=== PATIENT | female | born 1980 | race Caucasian/White ===

== ENCOUNTER 2017-04-23 06:15 | Inpatient (IN) | payer OTHER ==
[~2017-04-23] VITALS: Ht 160 cm; Wt 72.7 kg
[2017-04-23] MEDS ORDERED: OXYTOCIN 30U/ 0.9% NaCL 500ML 500 ML IV ONE (06:21)
[2017-04-23] MEDS ORDERED: LACTATED RINGERS 1,000 ML IV SCH (06:21)
[2017-04-23] MEDS ORDERED: PLEASE ENTER ALLERGIES MC SCH ×2 (06:30)
[2017-04-23] MEDS ORDERED: FENTANYL PF 100 MCG/2ML IVPush PRN (06:30)
[2017-04-23] MEDS ORDERED: ONDANSETRON 2MG/ML, 2ML IVPush PRN (06:30)
[2017-04-23] MEDS ORDERED: FENTANYL PF 100 MCG/2ML IV PRN (06:30)
[2017-04-23] MEDS ORDERED: TERBUTALINE 1 MG/ML, 1ML IVPush PRN (06:30)
[2017-04-23] MEDS ORDERED: NEWBORN KIT ONE (06:36)
[2017-04-23] MEDS ORDERED: FENTANYL PF 100 MCG/2ML ONE (06:43)
[2017-04-23 06:58] LABS: HEMATOCRIT 39.5 % (34.6-47.8); HEMOGLOBIN 13.6 g/dL (11.7-16.4); WHITE BLOOD COUNT 10.2 x10^3/uL (3.4-10)
[2017-04-23] MEDS ORDERED: FENTANYL/BUPIV./NS/PF 250 ML EPIDCONT ONE ×2 (07:25→07:30)
[2017-04-23] MEDS ORDERED: BUPIVACAINE/PF-EPI 0.25% 1:200K ONE (07:25)
[2017-04-23] MEDS ORDERED: BUPIVACAINE 0.25% ONE (07:30)
[2017-04-23] MEDS ORDERED: FENTANYL/BUPIV./NS/PF 250 ML EPIDCONT SCH (07:52)
[2017-04-23] MEDS ORDERED: OXYTOCIN 30U/ 0.9% NaCL 500ML 500 ML ONE ×2 (07:57→13:50)
[2017-04-23] MEDS ORDERED: MISOPROSTOL 200 MCG TABLET ONE (07:57)
[2017-04-23] MEDS ORDERED: LIDOCAINE 1%, 20ML ONE (07:57)
[2017-04-23] MEDS ORDERED: LACTATED RINGERS 1,000 ML IVBOLUS PRN (08:00)
[2017-04-23] MEDS: PLEASE ENTER ALLERGIES MC SCH ×20 (11:00→20:00)
[2017-04-23] MEDS: LACTATED RINGERS 1,000 ML IV SCH ×3 (11:01→23:52)
[2017-04-23] MEDS ORDERED: PREN1TAB10 PO (11:02)
[2017-04-23] MEDS ORDERED: DIPH25TA65 PO (11:03)
[2017-04-23] MEDS ORDERED: OXYTOCIN 10 UNITS/ML, 1ML IM PRN (12:00)
[2017-04-23] MEDS ORDERED: ONDANSETRON 2MG/ML, 2ML IV PRN (12:00)
[2017-04-23] MEDS ORDERED: CARBOPROST TROMETHAMINE 250 MCG/ML, 1ML IM PRN ×2 (12:00→21:00)
[2017-04-23] MEDS ORDERED: DOCUSATE 100 MG CAPSULE PO PRN ×2 (12:00→21:00)
[2017-04-23] MEDS ORDERED: METHYLERGONOVINE 0.2 MG/ML IM PRN ×2 (12:00→21:00)
[2017-04-23] MEDS ORDERED: IBUPROFEN 600 MG TABLET PO PRN ×2 (12:00→21:00)
[2017-04-23] MEDS ORDERED: MISOPROSTOL 200 MCG TABLET PR PRN (12:00)
[2017-04-23] MEDS ORDERED: HYDROcodone/APAP 5/325 TABLET PO PRN ×4 (12:00→21:00)
[2017-04-23] MEDS ORDERED: ACETAMINOPHEN 325 MG TABLET PO PRN ×2 (12:00→21:00)
[2017-04-23] MEDS ORDERED: IBUPROFEN 600 MG TABLET ONE (13:02)
[2017-04-23] MEDS: OXYTOCIN 30U/ 0.9% NaCL 500ML 500 ML IV SCH ×2 (13:53→21:57)
[2017-04-23 14:30] VITALS: BP 115/66
[2017-04-23 18:56] LABS: HEMATOCRIT 37.9 % (34.6-47.8); HEMOGLOBIN 13.1 g/dL (11.7-16.4); WHITE BLOOD COUNT 14.6 x10^3/uL (3.4-10)
[2017-04-23 19:30] VITALS: BP 105/64
[2017-04-23 23:45] VITALS: BP 122/71
[2017-04-24] MEDS ORDERED: IBUP-1222 PO (02:22)
[2017-04-24] MEDS ORDERED: HYDR-3240 PO (02:23)
[2017-04-24] MEDS ORDERED: SENN-52 PO (02:24)
[2017-04-24 03:50] VITALS: BP 113/67
[2017-04-24 07:10] VITALS: BP 137/87
[2017-04-24] MEDS ORDERED: PRENATAL VIT/IRON/FA 1 EACH TABLET ONE (07:37)
[2017-04-24] MEDS ORDERED: PRENATAL VIT/IRON/FA 1 EACH TABLET PO SCH ×2 (09:00)
== END 2017-04-24 12:37 | disposition home or self-care (01) | DRG 775 ==
LOC: LDOP 06:15 → LDIP 06:43 → 2NW 14:16
PROVIDERS: ADMIT Obstetrics & Gynecology; ATTEND Obstetrics & Gynecology
PROC: 10E0XZZ Delivery of Products of Conception, External Approach (ICD-10-PCS; principal; 2017-04-23)
PROC: 0HQ9XZZ Repair Perineum Skin, External Approach (ICD-10-PCS; 2017-04-23)
DX: O09.523 Supervision of elderly multigravida, third trimester (principal); O70.0 First degree perineal laceration during delivery; O71.82 Other specified trauma to perineum and vulva; Z3A.40 40 weeks gestation of pregnancy; Z37.0 Single live birth
CPT/HCPCS: 36415; 85025; 86850; 86900; J3010; J3490; J2590; J7120